=== PATIENT | female | born 1960 | race Caucasian/White ===

== ENCOUNTER 2018-09-05 08:57 | Outpatient (CLI) | payer MEDICAID | END 2018-09-05 08:58 | disposition home or self-care (01) | LOC: CARDIO 08:57 | DX: R07.89 Other chest pain (principal); E78.00 Pure hypercholesterolemia, unspecified; M06.9 Rheumatoid arthritis, unspecified; F17.200 Nicotine dependence, unspecified, uncomplicated; I10 Essential (primary) hypertension; Z79.899 Other long term (current) drug therapy ==